=== PATIENT | male | born 1955 | race Caucasian/White ===

== ENCOUNTER 2018-11-23 08:30 | Observation (INO) ==
--- NOTE | 2018-11-21 09:25 | Anesthesiology Consultation ---
Date of Service November 21, 2018 Assessment & Plan (1) Encounter for pre-operative examination: Chart Review Chart Review: Acceptable Risk for Surgery and Patient NOT seen in Pre Admission Testing Consults Requested none History Surgery Operation Date: 11/23/18 08:15 Proposed Procedures p T11-T12 Laminectomy, T10-T11, T11-T12, T12-L1, L1-L2 Instrumentation and Fusion - Oziel Dominguez DO Height/Weight Height: 1.8 m Weight: 134.4 kg Allergies Allergy/AdvReac Type Severity Reaction Status Date / Time No Known Allergies Allergy Verified 11/14/18 15:13 Medications Home Medications Medication Instructions Recorded Confirmed Last Taken aspirin 81 mg PO DAILY 11/14/18 11/14/18 Unknown doxycycline monohydrate 100 mg PO BID 11/14/18 11/14/18 Unknown furosemide 20 mg PO DAILY 11/14/18 11/14/18 Unknown omega 3-epr-vim-fish oil [Fish Oil] 1 cap PO DAILY 11/14/18 11/14/18 Unknown Past Medical History Medical History Acute Lyme disease Hyperlipidemia Hypertension Past Surgical History Surgical History History of appendectomy Social History Smoking Status: Never smoker Testing Electrocardiogram Date: 11/17/18 Findings: + NSR @ (72 bpm) Chest X-Ray Date: 11/17/18 Findings: + NAD Laboratory Results Laboratory Tests 11/17/18 11/17/18 11/17/18 12:37 12:37 12:37 WBC 9.81 Hgb 15.1 Hct 44.5 Plt Count 202 PT 10.6 INR 1.0 APTT 25.6 Sodium 140 Potassium 3.9 Chloride 107 Carbon Dioxide 28 BUN 24 H Creatinine 1.12 Glucose 110 H
--- NOTE | 2018-11-22 15:01 | History and Physical Report ---
DATE OF ADMISSION: 11/23/2018 CHIEF COMPLAINT: Lower extremity, difficulty, weakness, paresthesias, numbness, gait abnormality, progressive 1.5 years in duration. HISTORY OF PRESENT ILLNESS: Marline is pleasant. He has a progressive neurological deficit over the last 1.5 years, complicated by the fact that he was treated for Lyme disease which also led to his weakness. He came to my office a few days ago. He has cord compression of the thoracic spine between T11 mostly from a posterior direction and he is set up for surgery. It is semi-urgent. PAST MEDICAL HISTORY: Hypertension, obesity, high cholesterol. PAST SURGICAL HISTORY: Negative. ALLERGIES: None. MEDICATIONS: Lisinopril and doxycycline for Lyme disease. 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 No alcohol. Chews tobacco products. No drug issues. REVIEW OF SYSTEMS: He denies any fevers, sweats, chills, no bowel and bladder consequences. Denies chest pain, palpitations. Denies nausea, vomiting, urgency, frequency. Admits to extremity difficulty, gait abnormality and extreme weakness. OBJECTIVE: GENERAL: He is 6' 1". He is 305 pounds. Alert, oriented. VITAL SIGNS: Blood pressure 150/80, pulse 80. He is afebrile. HEENT: Normal. HEART: Normal. LUNG: Normal. ABDOMEN: Soft, nontender. Vascular structures intact. He has hyperreflexia, he has clonus, he has weakness of quad strength, weakness of push off strength and hip abductor strength. He also has significant gait abnormality. ASSESSMENT: Severe spinal stenosis lumbar spine T11-12 with progressive paresis and mild instability. PLAN: Decompression and fusion, laminectomy T11-12, instrumentation and fusion T10-11, T11-12 and T12-L1 and L1-L2.
[~2018-11-23 08:30] MED LIST: ACETAMINOPHEN 1,000 MG/100 ML VIAL IV SCH; ACETAMINOPHEN 1000 MG/100 ML IV IV ONE; ACETAMINOPHEN 500 MG TAB PO SCH; CEFAZOLIN 3000MG 65 ML IV SCH; LR 15ML/HR IV SCH; LR 60ML/HR IV SCH; SODIUM CHLORIDE 0.9% 1,000 ML IV SCH
[2018-11-23] MEDS ORDERED: DEXAMETHASONE SOD INJ 4 MG/ML VIAL ONE ×2 (09:37→11:36)
[2018-11-23] MEDS ORDERED: LARYING-O-JET KIT (LTA) ONE (09:37)
[2018-11-23] MEDS ORDERED: ONDANSETRON INJ 2 MG/ML 2 ML VIAL ONE (09:37)
[2018-11-23] MEDS ORDERED: PROPOFOL IV EMULSION 10 MG/ML 20 ML VIAL IV ONE (09:37)
[2018-11-23] MEDS ORDERED: fentaNYL citrate 100 MCG/2 ML VIAL ONE ×2 (09:37→11:44)
[2018-11-23] MEDS ORDERED: MIDAZOLAM HCL 1 MG/ML 2ML VIAL ONE (09:37)
[2018-11-23] MEDS ORDERED: LIDOCAINE HCL 2% 2 ML VIAL/AMP(20MG/ML) INFIL ONE (09:37)
[2018-11-23] MEDS ORDERED: HYDROmorphone INJ 2 MG/ML SYR/VIAL ONE (09:38)
[2018-11-23] MEDS ORDERED: SODIUM CHLORIDE 0.9% INJ 10 ML VIAL ONE (09:46)
[2018-11-23] MEDS ORDERED: ePHEDrine sulfate 50 MG/ML AMP IV PRN (10:08)
[2018-11-23] MEDS ORDERED: ATROPINE SULFATE 0.1 MG/ML 10ML SYR IV PRN (10:08)
[2018-11-23] MEDS ORDERED: HYDROmorphone INJ 1 MG/ML SYRINGE IV PRN ×2 (10:08→14:16)
[2018-11-23] MEDS ORDERED: THROMBIN FOR SOLN 20000 UNIT KIT ONE (10:40)
[2018-11-23] MEDS ORDERED: GELATIN SPONGE SZ 100 ONE (10:40)
[2018-11-23] MEDS ORDERED: VANCOMYCIN HCL 1000MG/20ML VIAL ONE (10:40)
[2018-11-23] MEDS ORDERED: BACITRACIN INJ 50,000 UNIT VIAL ONE (10:41)
[2018-11-23] MEDS ORDERED: BUPIVACAINE/EPINEPHRINE 0.5% MPF 1:200,000 30 ML VIAL ONE (10:42)
--- NOTE | 2018-11-23 11:01 | History & Physical Bridge Note ---
Date of Service November 23, 2018 History & Physical Bridge Note I have examined the patient, reviewed the History & Physical and in the interval since the performance of the History & Physical I have noted the following changes of clinical significance: no changes noted
[2018-11-23] MEDS ORDERED: KETAMINE HCL INJ 50 MG/ML 10 ML VIAL ONE (11:33)
[2018-11-23] MEDS ORDERED: FLOSEAL HEMOSTATIC MATRIX 10ML TOP ONE (12:18)
[2018-11-23] MEDS ORDERED: WATER, STERILE FOR INJ 10 ML VIAL ONE (12:22)
[2018-11-23] MEDS ORDERED: ePHEDrine sulfate 50 MG/ML AMP ONE (12:22)
--- NOTE | 2018-11-23 13:03 | Fluoroscopy Report ---
FL lumbar spine 2-3V CLINICAL HISTORY: 63 years-old Male presenting with T11-T12 LAMI, T10-L2 FUSION. TECHNIQUE: 1 fluoroscopic image(s) recorded as part of an intraoperative procedure. COMPARISON: 11/14/2018. FINDINGS/IMPRESSION: Surgical instrumentation projects over the thoracolumbar spine. Please see surgical report for further details. Fluoroscopy dosage (mGy): 18.45. Fluoroscopy time: 5.2 seconds. Number or time of high level fluoroscopy (HLF), digital spot, or digital subtraction images: 9.8 seco nds. Electronically signed by: Kuldeep Gomez M.D. 11/23/2018 1:01 PM
--- NOTE | 2018-11-23 13:08 | Post Operative Brief Note ---
Immediate Post Op Note v1 Date of Surgery November 23, 2018 Pre & Post Diagnosis Operation Date: 11/23/18 10:15 Pre-Op Diagnosis: Spinal Stenosis Post-Op Diagnosis: Spinal Stenosis Procedure Operation Date: 11/23/18 10:15 Actual Procedures p T11-T12 Laminectomy and Decompression(Not Applicable) - Oziel Dominguez DO Surgeon Oziel Dominguez DO Outside Sales Associate renzo Estimated Blood Loss 200 Findings Consistent with Post-Op Diagnosis Drains Avery Catheter (placed after induction by Olegario Kumar RN, without difficulty and with return of clear, yellow urine. placed to gravity drain with urimeter and montored by anesthesia for duration of procedure. ) and Hemovac Drain Complications none Disposition Accompanied Patient To Recovery: Yes Overlapping Procedure I was immediately available: during the entire case.
--- NOTE | 2018-11-23 13:56 | Operative Report ---
DATE OF OPERATION: 11/23/2018 PREOPERATIVE DIAGNOSIS: Spinal cord compression, T11 and T12 thoracic spine. POSTOPERATIVE DIAGNOSIS: Spinal cord compression, T11 and T12 thoracic spine. PROCEDURE: Laminectomy T12 and T11 with a posterior lateral fusion T11-L1 without instrumentation as a posterior lateral fusion with a combination of allograft and bone graft substitute. SURGEON: Oziel Dominguez MD. FUEL SYSTEM MAINTENANCE SUPERVISOR: Apollo Bell PA-C. COMPLICATIONS: None. BLOOD LOSS: 200. DESCRIPTION OF PROCEDURE: The patient was taken to the operating room, general intubated anesthetic provided to the patient, placed prone, scrubbed, prepped and draped sterile. We made a skin incision, fascial incision. It was a fairly moderate task to find the level of the spine at T11-T12. We were able to put a probe in the L2 vertebra and counted upward to 1, 12, and 11, marked the T11-T12 interspace. We put in a deep self-retaining retractor. We decompressed the neural elements, mostly lamina of 11, mostly lamina of 12, significant amount of ligamentum flavum hypertrophy right in the area of compression. There was no apparent injury to the cord prior to our decompression and during our surgery. I did not feel the patient had gross instability, neither that I want the patient have iatrogenic instability, so I went with a posterior lateral fusion with a combination of allograft and bone graft substitute called demineralized bone matrix. We then irrigated thoroughly with about 500 mL of fluid, closed over Hemovac drain and vancomycin powder and the bone graft in layer like fashion, staple gun on the skin, sterile dressing applied. The patient returned to PACU stable. There were no apparent complications with the procedure. I attest to the content of the Intraoperative Record and any orders documented therein. Any exception s are noted below.
[2018-11-23] MEDS ORDERED: MAGNESIUM HYDROXIDE SUSP 30 ML UDC PO PRN (14:16)
[2018-11-23] MEDS ORDERED: HYDROmorphone INJ 0.5 MG/0.5 ML SYR IV PRN (14:16)
[2018-11-23] MEDS ORDERED: PREDNISONE 10 MG PO SCH (14:16)
[2018-11-23] MEDS ORDERED: ACETAMINOPHEN 1,000 MG/100 ML VIAL IV PRN (14:16)
[2018-11-23] MEDS ORDERED: ONDANSETRON INJ 2 MG/ML 2 ML VIAL IV PRN (14:16)
[2018-11-23] MEDS: OXYCODONE HCL IR 5 MG TAB (IMMEDIATE RELEASE) PO PRN ×3 (14:35→23:49)
[2018-11-23] MEDS: SODIUM CHLORIDE 0.9% 1000ML 1,000 ML IV SCH (14:35)
--- NOTE | 2018-11-23 14:49 | Anesthesiology Progress Note ---
Date of Service November 23, 2018 Anesthesia Post Procedure Vital Signs Vital Signs: Temp Pulse Pulse Pulse Resp BP BP 11/23/18 14:46 67 16 135/88 11/23/18 14:18 36.5 C 51 L 18 147/82 H 11/23/18 14:01 36.3 C L 11/23/18 14:00 49 L 19 11/23/18 13:55 56 L 20 137/87 11/23/18 13:50 54 L 14 121/72 11/23/18 13:46 56 L 15 144/89 H 11/23/18 13:45 50 L 12 11/23/18 13:41 53 L 15 146/87 H 11/23/18 13:40 51 L 13 11/23/18 13:35 70 14 148/94 H 11/23/18 13:30 63 17 148/95 H 11/23/18 13:25 62 22 147/96 H 11/23/18 13:20 55 L 16 146/96 H 11/23/18 13:17 66 15 11/23/18 13:15 67 13 145/88 H 11/23/18 13:14 67 14 140/95 11/23/18 13:12 67 14 151/98 H 11/23/18 13:11 36.5 C 67 67 6 L 151/98 H 11/23/18 09:29 36.6 C 60 16 145/86 H Pulse Ox 11/23/18 14:46 94 11/23/18 14:18 93 11/23/18 14:01 93 11/23/18 14:00 92 11/23/18 13:55 92 11/23/18 13:50 95 11/23/18 13:46 92 11/23/18 13:45 92 11/23/18 13:41 92 11/23/18 13:40 93 11/23/18 13:35 95 11/23/18 13:30 94 11/23/18 13:25 93 11/23/18 13:20 95 11/23/18 13:17 97 11/23/18 13:15 97 11/23/18 13:14 97 11/23/18 13:12 97 11/23/18 13:11 96 11/23/18 09:29 97 Pain Intensity Back: Pain Intensity: 0 Notes Mental Status: alert / awake / arousable Patient Amnestic to Procedure: Yes Nausea / Vomiting: adequately controlled Pain: adequately controlled Airway Patency, RR, SpO2: stable & adequate BP & HR: stable & adequate Hydration State: stable & adequate Anesthetic Complications: no major complications apparent and Pt Satisfied with anesthetic care
[2018-11-23] MEDS ORDERED: Nursing to Pharmacy Communication ONE (17:47)
[2018-11-23] MEDS: dexAMETHasone 6 MG in SYRINGE 0 ML IV SCH (17:59)
[2018-11-23] MEDS: CEFAZOLIN 2000MG 2,000 MG/15 ML SYR IV SCH (19:25)
[2018-11-23] MEDS: DOXYCYCLINE HYCLATE 100 MG CAP PO SCH (21:03)
[2018-11-23] MEDS: DOCUSATE SODIUM 100 MG CAP PO SCH (21:03)
[2018-11-24] MEDS: CEFAZOLIN 2000MG 2,000 MG/15 ML SYR IV SCH ×2 (02:48→11:23)
[2018-11-24] MEDS: dexAMETHasone 6 MG in SYRINGE 0 ML IV SCH ×2 (02:48→10:15)
[2018-11-24] MEDS: SODIUM CHLORIDE 0.9% 1000ML 1,000 ML IV SCH (03:40)
[2018-11-24] MEDS: OXYCODONE HCL IR 5 MG TAB (IMMEDIATE RELEASE) PO PRN ×5 (03:54→23:46)
[2018-11-24] MEDS: DOCUSATE SODIUM 100 MG CAP PO SCH ×2 (08:43→21:34)
[2018-11-24] MEDS: ASPIRIN 81 MG ECTAB PO SCH (08:43)
[2018-11-24] MEDS: OMEGA-3 (PURIFIED FISH OIL) 1 GM CAP PO SCH (08:44)
[2018-11-24] MEDS: LISINOPRIL 20 MG TAB PO SCH (08:44)
[2018-11-24] MEDS: FUROSEMIDE 20 MG TAB PO SCH (08:44)
[2018-11-24] MEDS: DOXYCYCLINE HYCLATE 100 MG CAP PO SCH ×2 (08:45→21:35)
[2018-11-24] MEDS: POTASSIUM CHLORIDE PWD 20 MEQ PACK PO SCH (08:45)
[2018-11-25] MEDS: OXYCODONE HCL IR 5 MG TAB (IMMEDIATE RELEASE) PO PRN ×2 (03:56→09:03)
[2018-11-25] MEDS ORDERED: BISACODYL 5 MG TABEC PO PRN (06:00)
[2018-11-25] MEDS: OMEGA-3 (PURIFIED FISH OIL) 1 GM CAP PO SCH (08:28)
[2018-11-25] MEDS: FUROSEMIDE 20 MG TAB PO SCH (08:28)
[2018-11-25] MEDS: POTASSIUM CHLORIDE PWD 20 MEQ PACK PO SCH (08:28)
[2018-11-25] MEDS: DOCUSATE SODIUM 100 MG CAP PO SCH (08:28)
[2018-11-25] MEDS: LISINOPRIL 20 MG TAB PO SCH (08:29)
[2018-11-25] MEDS: DOXYCYCLINE HYCLATE 100 MG CAP PO SCH (08:29)
[2018-11-25] MEDS: ASPIRIN 81 MG ECTAB PO SCH (08:29)
--- NOTE | 2018-11-25 11:08 | Discharge Summary ---
SUBJECTIVE: He is alert, oriented, minimal complaints of pain. He has had an uneventful positive 48-hour course here at the hospital. No chest pain, shortness of breath. OBJECTIVE: Vital signs all stable. Moves extremities. No confusion. ASSESSMENT: Status post decompression spinal canal for severe stenosis. PLAN: Includes discharge home today. He has a walker at home. Prescriptions on his chart. Instructions and precautions have been given here in the hospital and in our office. We will see him back in the office in 10 days. The appointment is already scheduled. There were no events.
== END 2018-11-25 10:09 | disposition home health service (06) ==
LOC: ASU 08:30 → 3E 08:30